=== PATIENT | male | born 1965 | race Caucasian/White ===

== ENCOUNTER 2017-09-24 16:52 | Emergency (ER) | payer OTHER ==
[2017-09-24 17:24] VITALS: BP 132/82; PULSE 83; TEMP 97.8; BMI 29.6
--- NOTE | 2017-09-24 17:25 | PDOC ---
Rapid Medical Evaluation Time Seen by Provider: 09/24/17 17:16 Medical Evaluation: Allergies Allergy/AdvReac Type Severity Reaction Status Date / Time No Known Allergies Allergy Verified 09/24/17 17:16 09/24/17 17:16 I have performed a brief in-person evaluation of the patient. The patient presents with chief complaint of: headache and nausea intermittently x 1 month States diaphoretic this am. States he wants to be tested for e.coli and listeria Pertinent physical exam findings are: NAD lungs clear bilateral abdomen non tender + bowel sounds grossly neurologically intact I have ordered the following: none The patient will proceed to the ED for further evaluation. Discharge Disposition - Referrals Referrals: Quintin Gonzales MD [Primary Care Provider] - - Patient Instructions - Post Discharge Activity
--- NOTE | 2017-09-24 18:15 | PDOC ---
History of Present Illness - General History Source: Patient Exam Limitations: No Limitations - History of Present Illness Initial Comments: 09/24/17 18:49 The patient is a 51 year old male, with no significant past medical history, who presents to the emergency department with, diaphoresis, nausea, and headache. The patient reports these symptoms occurred this morning and has since subsided. He reports he currently only has mild neck stiffness which is chronic in nature. As per patient, his was admitted and diagnosed with a UTI caused by E. coli two months ago and he was unaware if it was contagious. He denies any recent fevers or dizziness. He denies any recent vomit, diarrhea or constipation. He denies any recent chest pain or shortness of breath. He denies any recent dysuria, frequency, urgency or hematuria. Allergies: NKA Social History: Nonsmoker. Denies EtOH use and recreational drug use. Primary Care Physician: Dr. Quintin Gonzales <Jeb Hall - Last Filed: 09/24/17 18:49> <Angle Maravilla - Last Filed: 09/24/17 19:16> - General Chief Complaint: Revisit, Lab Variance Stated Complaint: HEADACHE Time Seen by Provider: 09/24/17 17:16 Past History <Jeb Hall - Last Filed: 09/24/17 18:49> - Past Medical History COPD: No Other medical history: DENIES. - Suicide/Smoking/Psychosocial Hx Smoking History: Never smoked <Angle Maravilla - Last Filed: 09/24/17 19:16> - Past Medical History Allergies/Adverse Reactions: Allergies Allergy/AdvReac Type Severity Reaction Status Date / Time No Known Allergies Allergy Verified 09/24/17 17:16 Home Medications: Ambulatory Orders NK [No Known Home Medication] 09/24/17 Review of Systems - Review of Systems Able to Perform ROS?: Yes Comments:: 09/24/17 18:50 CONSTITUTIONAL: Absent: fever, no chills, no fatigue EYES: Absent: visual changes ENT: Absent: ear pain, no sore throat CARDIOVASCULAR: Absent: chest pain, no palpitations RESPIRATORY: Absent: cough, no SOB GI: Absent: abdominal pain, no nausea, no vomiting, no constipation, no diarrhea GENITOURINARY: Absent: dysuria, no frequency, no hematuria MUSKULOSKELETAL: Absent: back pain, no arthralgia, no myalgia SKIN: Absent: rash NEURO: Absent: headache All Other Systems: Reviewed and Negative <Jeb Hall - Last Filed: 09/24/17 18:49> *Physical Exam - Vital Signs Last Vital Signs Temp Pulse Resp BP Pulse Ox 97.8 F 83 19 132/82 98 09/24/17 17:16 09/24/17 17:16 09/24/17 17:16 09/24/17 17:16 09/24/17 17:16 - Physical Exam Comments: 09/24/17 18:51 GENERAL: Well-appearing, well-nourished. No apparent distress. HEENT: Normocephalic, atraumatic. PERRL, EOM intact. CARDIOVASCULAR: Normal S1, S2. Regular rate and rhythm. PULMONARY: Clear to auscultation bilaterally. ABDOMEN: Soft, non-distended, non-tender. EXTREMITIES: Normal ROM in all four extremities. No gross deformities. SKIN: Warm, dry. No rash NEUROLOGICAL: No focal neurological deficits. <Jeb Hall - Last Filed: 09/24/17 18:49> - Vital Signs Last Vital Signs Temp Pulse Resp BP Pulse Ox 97.8 F 83 19 132/82 98 09/24/17 17:16 09/24/17 17:16 09/24/17 17:16 09/24/17 17:16 09/24/17 17:16 <nAgle Maravilla - Last Filed: 09/24/17 19:16> Medical Decision Making - Medical Decision Making 09/24/17 18:17 Patient is a 51-year-old male presents emergency department requesting testing for listeria and Escherichia coli. Patient reports that his was seen in the emergency department and diagnosed with Escherichia coli or listeria in July and he has not been feeling well this morning had dizziness, currently denies any symptoms. Has been concerned requesting testing. Here with , son and daughter requesting same. After further review of his 's medical record after consent obtained from to review, his was noted with Escherichia coli in the urine culture, urine analysis was unremarkable. refused treatment with antibiotics at the time. Blood cultures were negative. I have gone over all results of testing with the family and they were made aware of proper results and that her infection is in the urine. is at the bedside and is well appearing. They are all denying any urinary tract symptoms. 09/24/17 19:15 <Angle Maravilla - Last Filed: 09/24/17 19:16> *DC/Admit/Observation/Transfer - Attestations Scribe Attestion: 09/24/17 18:52 Documentation prepared by Jeb Hall, acting as biomedical engineering internship for Angle Maravilla NP. <Jeb Hall - Last Filed: 09/24/17 18:49> - Discharge Dispostion Admit: No <Angle Maravilla - Last Filed: 09/24/17 19:16> Diagnosis at time of Disposition: Physically well but worried - Discharge Dispostion Disposition: HOME Condition at time of disposition: Stable - Referrals Referrals: Quintin Gonzales MD [Primary Care Provider] - - Patient Instructions Additional Instructions: Recommend follow-up with primary care doctor if any headache, nausea vomiting, urinary pain or pressure, or other concerns. - Post Discharge Activity
== END 2017-09-24 18:31 | disposition home or self-care (01) ==
LOC: JERFT 16:52
DX: Z03.89 Encounter for observation for other suspected diseases and conditions ruled out (principal)
CPT/HCPCS: 99281-25